=== PATIENT | female | born 2000 | race African-American/Black ===

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

== ENCOUNTER 2021-06-06 21:33 | Emergency (ER) | payer MEDICAID ==
[~2021-06-06] VITALS: Ht 167.6 cm; Wt 125.0 kg
[2021-06-06] MEDS ORDERED: IBUP-2030 MT (23:11)
[2021-06-06 23:15] VITALS: BP 122/63
[2021-06-06] MEDS ORDERED: IBUPROFEN 800MG TABLET PO ONE (23:15)
== END 2021-06-07 00:16 | disposition home or self-care (01) ==
LOC: ER 21:33
DX: B34.9 Viral infection, unspecified (principal); J45.909 Unspecified asthma, uncomplicated; Z20.822 Contact with and (suspected) exposure to COVID-19
CPT/HCPCS: 81025; 87426; 99283

== ENCOUNTER 2021-06-07 21:00 | Emergency (ER) | payer MEDICAID ==
[~2021-06-07] VITALS: Ht 167.6 cm; Wt 118.0 kg
[~2021-06-07 21:00] MED LIST: IBUP-2030 MT
[2021-06-07 21:08] VITALS: BP 109/72
[2021-06-08] MEDS ORDERED: IBUPROFEN 600MG TABLET PO ONE (02:45)
== END 2021-06-08 03:00 | disposition home or self-care (01) ==
LOC: ER 21:00
DX: J06.9 Acute upper respiratory infection, unspecified (principal); J45.909 Unspecified asthma, uncomplicated; Z20.822 Contact with and (suspected) exposure to COVID-19
CPT/HCPCS: 87426; 93005; 99284

== ENCOUNTER 2023-06-28 13:19 | Emergency (ER) | payer MEDICAID ==
[~2023-06-28] VITALS: Ht 175.3 cm; Wt 121.0 kg
[2023-06-28 13:38] VITALS: BP 152/104; PULSE 85; RESP 18; TEMP 98.1; O2SAT 99
[2023-06-28 14:48] LABS: BASOPHILS % 0.3 % (0.0-2.0); DIFFERENTIAL COMMENT 0; EOSINOPHILS % 0.8 % (0.0-5.0); HEMATOCRIT. 36.2 % (36.0-48.0); LYMPHOCYTES % 9.4 % (20.0-50.0); MEAN CORPUSCULAR HEMOGLOBIN 25.6 pg (28.0-32.0); MEAN CORPUSCULAR HGB CONC 33.1 g/dL (31.0-37.0); MEAN CORPUSCULAR VOLUME 77.1 fL (81.0-99.0); MEAN PLATELET VOLUME 7.5 fl (7.4-10.4); MONOCYTES % 3.8 % (2.0-8.0); NEUTROPHILS % 85.7 % (40.0-76.0); PLATELET 409 x1000/uL (130-400); RED BLOOD CELL COUNT 4.69 mill/uL (4.2-5.4); RED CELL DISTRIBUTION WIDTH 17.3 % (11.6-14.6); WHITE BLOOD COUNT 16.4 x1000/uL (4.5-11.0)
[2023-06-28 14:57] LABS: CHLORIDE 105 mEq/L (98-107); POTASSIUM 3.4 mEq/L (3.5-5.1); SODIUM 139 mEq/L (136-145)
[2023-06-28 14:58] LABS: CALCIUM 8.9 mg/dL (8.7-10.4); CARBON DIOXIDE 26 mEq/L (21-32)
[2023-06-28 15:03] LABS: CREATININE 0.9 mg/dL (0.6-1.0); GLUCOSE 98 mg/dL (70-105); UREA NITROGEN BLOOD 11 mg/dL (9-23)
[2023-06-28 15:10] LABS: CLARITY URINE CLOUDY (CLEAR); COLOR URINE YELLOW (YELLOW); GLUCOSE URINE NEGATIVE (NEGATIVE); KETONES URINE 2+ (NEGATIVE); LEUKOCYTE ESTERASE URINE 2+ (NEGATIVE); NITRITE URINE NEGATIVE (NEGATIVE); OCCULT BLOOD URINE 2+ (NEGATIVE); PH URINE 5.5 (4.5-8.0); PROTEIN URINE NEGATIVE (NEGATIVE); SPECIFIC GRAVITY URINE 1.025 (1.005-1.030); UROBILINOGEN URINE 0.2 E.U./dL (0.2-1.0)
[2023-06-28 15:20] LABS: HCG SCREEN NEGATIVE
[2023-06-28 15:28] LABS: BACTERIA URINE 1+; SQUAMOUS EPITHELIAL CELL URINE 2+ /lpf (RARE/1+)
[2023-06-28 15:29] LABS: RBC URINE 0-2 /hpf (0-2)
== END 2023-06-28 17:48 | disposition left against medical advice (07) ==
LOC: ER 13:19
DX: M54.9 Dorsalgia, unspecified (principal); Z53.21 Procedure and treatment not carried out due to patient leaving prior to being seen by health care provider
CPT/HCPCS: 36415; 80048; 81003; 81025; 84703; 85025; 99281

== ENCOUNTER 2024-05-02 09:44 | Emergency (ER) | payer MEDICAID ==
[~2024-05-02] VITALS: Ht 170.2 cm; Wt 104.0 kg
[2024-05-02 09:45] VITALS: BP 109/84; PULSE 81; RESP 18; TEMP 36.5; O2SAT 99
[2024-05-02] MEDS ORDERED: IBUP-2029 PO (10:43)
[2024-05-02] MEDS ORDERED: T3 PO (10:43)
[2024-05-02] MEDS: OXYCODONE HCL/ACETAMINOPHEN 5/325MG TABLET PO ONE (10:58)
[2024-05-02] MEDS: IBUPROFEN 800MG TABLET PO ONE (10:58)
== END 2024-05-02 11:00 | disposition home or self-care (01) ==
LOC: ER 09:44
DX: G89.29 Other chronic pain (principal); M54.50 Low back pain, unspecified; J45.909 Unspecified asthma, uncomplicated; Z79.1 Long term (current) use of non-steroidal anti-inflammatories (NSAID)
CPT/HCPCS: 81025; 99283